=== PATIENT | male | born 2000 | race African-American/Black ===

== ENCOUNTER 2021-01-19 11:46 | Emergency (ER) | payer SELFPAY ==
[~2021-01-19] VITALS: Ht 170.2 cm; Wt 86.1 kg
[2021-01-19 11:50] VITALS: BP 131/75
--- NOTE | 2021-01-19 12:25 | RAD ---
Exam Date: 01/19/2021 12:02 PM XR KNEE 3 VIEWS_RT Indication: Reason: pain in lateral R knee w/ WB after doing flips last night / Spl. Instructions: / History: . FINDINGS/ IMPRESSION: No acute fracture or dislocation. Alignment and joint spaces are maintained. The soft tissues are w ithin normal limits. Electronically signed by: Davion Kaminski MD (01/19/2021 12:22 PM) [id number]
--- NOTE | 2021-01-19 12:41 | ED.ADGEN ---
General Adult EDM: Chief Complaint: KNEE INJURY HPI: HPI: Patient is a 20 year old AA male who presents to the emergency department with complaints of lateral right knee pain that increases when he bears weight on his right heel. Patient states that he was doing flips outside yesterday and thinks he may have hurt his knee when he was doing the flips. He denies any known twisting injury or fall. Patient denies any erythema, warmth, or swelling to the affected extremity. He denies any decreased sensation, numbness, or tingling. Patient currently rates the pain a 5 out of 10 on the pain scale, he denies taking anything for pain prior to arrival. Patient declines pain medication at this time. Review of Systems: Review of Systems: Complete ROS is negative unless otherwise noted in HPI. Physical Exam: PE: See Above Constitutional: Well developed, well nourished, no acute distress, non-toxic appearance. [] HENT: Normocephalic, atraumatic, bilateral external ears normal, nose normal. [] Eyes: PERRLA, EOMI, conjunctiva normal, no discharge. [] Neck: Normal range of motion, no stridor. [] Cardiovascular:Heart rate regular rhythm Lungs & Thorax: Respirations even and unlabored, no retractions, no respiratory distress Skin: Warm, dry, no erythema, no rash. [] Extremities: Right knee: Lateral tenderness to palpation, no obvious deformity, no bony tenderness, sensation intact, negative anterior/posterior drawer testing, no cyanosis, ROM intact, no edema. [] Neurologic: Alert and oriented X 3, normal motor, normal sensory, no focal deficits noted. [] Psychologic: Affect normal, judgement normal, mood normal. [] EKG: EKG: [] Heart Score: C/O Chest Pain: No Risk Scores: Score 0 - 3: 2.5% MACE over next 6 weeks - Discharge Home Score 4 - 6: 20.3% MACE over next 6 weeks - Admit for Clinical Observation Score 7 - 10: 72.7% MACE over next 6 weeks - Early Invasive Strategies Radiology/Procedures: Radiology/Procedures: PROCEDURE: KNEE RIGHT 3V Exam Date: 01/19/2021 12:02 PM XR KNEE 3 VIEWS_RT Indication: Reason: pain in lateral R knee w/ WB after doing flips last night / Spl. Instructions: / History: . FINDINGS/ IMPRESSION: No acute fracture or dislocation. Alignment and joint spaces are maintained. The soft tissues are within normal limits. Electronically signed by: Davion Kaminski MD (01/19/2021 12:22 PM) [id number] [] Course & Med Decision Making: Course & Med Decision Making Pertinent Labs and Imaging studies reviewed. (See chart for details) Patient is a 20-year-old male who presented to the emergency department with complaints of right lateral knee pain. X-ray did not reveal any acute findings, patient was offered pain medication in the ER and a prescription for pain medication, he declined medications. He was placed in a knee immobilizer and given crutches. I provided the patient with 's information for follow-up, I recommended he follow-up for further evaluation next week. Patient verbalized an understanding of home care, medications, follow-up, and return to ED instructions and was in agreement with the plan of care. [] Dragon Disclaimer: Dragon Disclaimer: This electronic medical record was generated, in whole or in part, using a voice recognition dictation system. Departure Departure Impression: Primary Impression: Right knee pain Disposition: HOME / SELF CARE / HOMELESS Condition: STABLE Referrals: [id number] CHATTERJEE MD Patient Instructions: Knee Pain, [id number] Additional Instructions: Tylenol or ibuprofen as needed for pain. Recommend application of ice, elevation, and rest of affected extremity. Wear the knee immobilizer that was placed and use the crutches that were provided until follow up appointment. Follow-up with Dr. Chatterjee for reevaluation next week. Return to the ER if your symptoms worsen. Problem Qualifiers Primary Impression: Right knee pain Chronicity: acute Qualified Codes: M25.561 - Pain in right knee MELLISA FOX [employer] Jan 19, 2021 12:41
== END 2021-01-19 13:25 | disposition home or self-care (01) ==
LOC: ER 11:46
DX: M25.561 Pain in right knee (principal)
CPT/HCPCS: 29505; 73562; 99283